=== PATIENT | male | born 1995 | race American Indian/Alaskan Native ===

== ENCOUNTER 2022-06-22 01:32 | Emergency (ER) | payer SELFPAY ==
[2022-06-22] MEDS ORDERED: Bacitracin Oint 1 GM U/D Packet TOP ONE (02:06)
[2022-06-22] MEDS ORDERED: Diphtheria,Pertussis(Acell),Tetanus Vaccine 0.5 ML Syringe IM ONE (02:35)
== END 2022-06-22 02:48 | disposition home or self-care (01) ==
LOC: JP.ED 01:32 → EDBD 01:32 → JP.ED 02:48
DX: T33.821A Superficial frostbite of right foot, initial encounter (principal); S29.9XXA Unspecified injury of thorax, initial encounter; S00.31XA Abrasion of nose, initial encounter; J30.2 Other seasonal allergic rhinitis; Z23 Encounter for immunization; X31.XXXA Exposure to excessive natural cold, initial encounter
CPT/HCPCS: 71045; 71045-26; 90471; 90715; 99283; 99284-25